=== PATIENT | female | born 1955 | race Caucasian/White ===

== ENCOUNTER 2020-01-21 14:33 | Outpatient (CLI) | payer OTHER, BC, SELFPAY ==
--- NOTE | ~2020-01-21 | MM_ITS ---
EXAMINATION: MM screening ban BI w ottoniel HISTORY: Screening mammogram TECHNIQUE: Craniocaudal and mediolateral oblique 3-D tomosynthesis images were obtained and synthetic 2-D images were generated. Bilateral rotated lateral CC views. CAD analysis was submitted and interp reted. COMPARISON: 11/13/2018, 09/27/2017, 06/22/2016 bilateral digital screening mammogram examinations BREAST PARENCHYMAL COMPOSITION: There are scattered areas of fibroglandular density. FINDINGS: Occasional small low-density circumscribed opacities are stable since 06/22/2016. There is no evidence of suspicious mass, calcification, or architectural distortion to suggest malignancy in e ither breast. There has been no suspicious interval change. IMPRESSION: 1. No mammographic evidence of malignancy. 2. Recommend routine screening mammography in one year. BI-RADS Category 2: Benign finding(s). Reviewed, dictated and finalized at location A.
== END 2020-01-21 14:34 | disposition home or self-care (01) ==
LOC: ANHIMG 14:36
PROVIDERS: PCP Physician Assistant; Visit Provider Physician Assistant
DX: Z12.31 Encounter for screening mammogram for malignant neoplasm of breast (principal)
CPT/HCPCS: 77063; 77067

== ENCOUNTER 2021-05-06 16:22 | Outpatient (CLI) | payer OTHER, BC, SELFPAY ==
--- NOTE | ~2021-05-06 | MM_ITS ---
EXAMINATION: MM screening ban BI w ottoniel HISTORY: Screening TECHNIQUE: Craniocaudal and mediolateral oblique 3-D tomosynthesis images were obtained and synthetic 2-D images were generated. CAD analysis was submitted and interpreted. COMPARISON: Comparison to multiple prior studies sequentially, with oldest reviewed study dated 03/27. BREAST PARENCHYMAL COMPOSITION: There are scattered areas of fibroglandular density. FINDINGS: There is no evidence of suspicious mass, calcification, or architectural distortion to sugg est malignancy in either breast. There has been no suspicious interval change. IMPRESSION: 1. No mammographic evidence of malignancy. 2. Recommend routine screening mammography in one year. BI-RADS Category 1: Negative Reviewed, dictated and finalized at location A.
== END 2021-05-06 16:23 | disposition home or self-care (01) ==
LOC: ANHIMG 16:24
PROVIDERS: PCP Physician Assistant; Visit Provider Physician Assistant
DX: Z12.31 Encounter for screening mammogram for malignant neoplasm of breast (principal)
CPT/HCPCS: 77063; 77067

== ENCOUNTER 2022-08-13 10:41 | Outpatient (CLI) | payer OTHER, BC, SELFPAY ==
--- NOTE | ~2022-08-13 | MM_ITS ---
EXAMINATION: MM screening ban BI w ottoniel HISTORY: Screening TECHNIQUE: Craniocaudal and mediolateral oblique 3-D tomosynthesis images were obtained and synthetic 2-D images were generated. CAD analysis was submitted and interpreted. COMPARISON: Comparison to multiple prior studies sequentially, with oldest reviewed study dated 05/14. BREAST PARENCHYMAL COMPOSITION: There are scattered areas of fibroglandular density. FINDINGS: There is no evidence of suspicious mass, calcification, or architectural distortion to sugg est malignancy in either breast. There has been no suspicious interval change. IMPRESSION: 1. No mammographic evidence of malignancy. 2. Recommend routine screening mammography in one year. BI-RADS Category 1: Negative Reviewed, dictated and finalized at location B. CHIEF'S AIDE
== END 2022-08-13 10:42 | disposition home or self-care (01) ==
LOC: ANHIMG 10:43
PROVIDERS: PCP Physician Assistant; Visit Provider Physician Assistant
DX: Z12.31 Encounter for screening mammogram for malignant neoplasm of breast (principal)
CPT/HCPCS: 77063; 77067

== ENCOUNTER 2023-11-25 08:42 | Outpatient (CLI) | payer OTHER, SELFPAY ==
--- NOTE | ~2023-11-25 | MM_ITS ---
EXAMINATION: MM screening ban BI w ottoniel HISTORY: Screening mammogram TECHNIQUE: Craniocaudal and mediolateral oblique 3-D tomosynthesis images were obtained and synthetic 2-D images were generated. CAD analysis was submitted and interpreted. COMPARISON: 08/13/2022, 05/06/2021 bilateral screening mammogram examinations BREAST PARENCHYMAL COMPOSITION: There are scattered areas of fibroglandular density. FINDINGS: There is no evidence of suspicious mass, calcification, or architectural distortion to sugg est malignancy in either breast. There has been no suspicious interval change. IMPRESSION: 1. No mammographic evidence of malignancy. 2. Recommend routine screening mammography in one year. BI-RADS Category 1: Negative Reviewed, dictated and finalized at location A.
== END 2023-11-25 08:43 | disposition home or self-care (01) ==
PROVIDERS: PCP Physician Assistant; Visit Provider Physician Assistant
DX: Z12.31 Encounter for screening mammogram for malignant neoplasm of breast (principal)
CPT/HCPCS: 77063; 77067

== ENCOUNTER 2024-02-15 08:51 | Outpatient (CLI) | payer OTHER, SELFPAY ==
--- NOTE | ~2024-02-15 | CT_ITS ---
Non-contrast CT scan of the Abdomen and Pelvis Clinical indication: Kidney stones Technique: 2.5 mm axial scans were obtained through the abdomen and pelvis without intravenous or or al contrast. Dose reduction technique was used on this scan by utilizing automated exposure control a nd iterative reconstruction technique. The dose-length product (DLP) was 992.58 mGy-cm. Findings: Images through the lung bases reveal 5 mm right lower lobe pulmonary nodule. There is a 1.1 x 0.6 cm ovoid stone at the mid right ureter (axial image 93), with mild right hydrour eteronephrosis to this level. There are additional small bilateral nonobstructing renal stones, measu ring up to 4 mm in maximum diameter. No left ureteral stone or left hydronephrosis. Hepatic cysts are present, some which are simple, there is one partially exophytic cyst with thin per ipheral curvilinear calcification. Gallbladder distended, otherwise unremarkable. The spleen, pancrea s, and adrenals appear normal. There is no aortic aneurysm. There is no evidence of bowel obstruction. Images through the pelvis were performed. There is no evidence of ascites or lymphadenopathy. Urinary bladder unremarkable. No pelvic mass seen. Impression: 1.1 x 0.6 cm mid right ureteral stone, with moderate right hydroureteronephrosis to this level. Additional small bilateral nonobstructing renal stones, as detailed above. 5 mm right lower lobe pulmonary nodule. According to Fleischner Society criteria, for a low-risk bandar ent, no further follow-up required. For a high-risk patient, consider 12 month follow-up CT. Reviewed, dictated and finalized at [facility]. Impression: 1.1 x 0.6 cm mid right ureteral stone, with moderate right hydroureteronephrosi s to this level. Additional small bilateral nonobstructing renal stones, as detailed above. 5 mm right lower lobe pulmonary nodule. According to Fleischner Society criteri a, for a low-risk patient, no further follow-up required. For a high-risk patie nt, consider 12 month follow-up CT.
== END 2024-02-15 08:52 ==
PROVIDERS: PCP Urology; Visit Provider Urology
DX: N20.2 Calculus of kidney with calculus of ureter (principal); N13.30 Unspecified hydronephrosis; Z87.442 Personal history of urinary calculi; R91.1 Solitary pulmonary nodule
CPT/HCPCS: 74176

== ENCOUNTER 2024-03-12 08:58 | Outpatient (CLI) | payer OTHER, SELFPAY ==
--- NOTE | 2024-03-12 09:00 | ECG_ITS ---
Test Date: 2024-03-12 09:33:08 Measurements Intervals [place] Rate: 47 P: 49 VT: 156 QRS: -8 QRSD: 82 T: 9 QT: 417 QTc: 369 Interpretive Statements SINUS BRADYCARDIA LOW QRS VOLTAGE IN PRECORDIAL LEADS POSSIBLE RIGHT VENTRICULAR CONDUCTION DELAY LEFT VENTRICULAR HYPERTROPHYWITH ST-T CHANGE BORDERLINE ST-T WAVE ABNORMALITY- ANTEROLAT/INF LEADS BASELINE ARTIFACT- I, II, III, AVR, AVL, AVF, V3-V6 ABNORMAL ECG No previous ECG available for comparison Electronically Signed On 03-12-2024 09:38:27 CDT by Chester Brown D.O.
[2024-03-12 10:16] LABS: Anion Gap 9 mmol/L (4-12); Blood Urea Nitrogen 23 mg/dL (7-17); Calcium 8.8 mg/dL (8.4-10.2); Carbon Dioxide 31 mmol/L (22-30); Chloride 101 mmol/L (98-107); Estimated Glomerular Filt Rate > 60; Glucose 110 mg/dL (65-110); Potassium 3.3 mmol/L (3.4-5.0); Sodium 141 mmol/L (137-145)
[2024-03-12 10:25] LABS: Prothrombin Time 13.8 Seconds (11.1-14.7)
[2024-03-12 10:26] LABS: Partial Thromboplastin Time 28.5 Seconds (22.3-36.8)
== END 2024-03-12 08:59 | disposition home or self-care (01) ==
LOC: ANHSURGERY 09:01
PROVIDERS: Anesthesiology; PCP Physician Assistant; Visit Provider Urology
DX: Z01.818 Encounter for other preprocedural examination (principal); N20.1 Calculus of ureter; I10 Essential (primary) hypertension
CPT/HCPCS: 36415; 80048; 85610; 85730; 87086; 87088; 93005

== ENCOUNTER 2024-03-15 00:27 | Day surgery (SDC) | payer OTHER, SELFPAY ==
--- NOTE | 2024-03-06 07:25 | P.HP_ITS ---
History of Present Illness History of Present Illness Consent: Risks, benefits, and alternatives have been discussed and questions answered. Patient agrees to proceed with procedure. Chief complaint: right ureteral stone Narrative: Nidia Alonso is a 68 year old female with a history of urolithiasis who has not been seen for several years. She returns with very slight right flank pain. Imaging, however, demonstrated a large 11 x 6 mm right ureteral stone. After discussion of options she is elected for cystoscopy with right ureteral stent placement and right ESWL. She is aware that she may require additional procedures and that this procedure could lead to, among other things, hematuria perinephric hematoma Review of Systems Review of Systems: All systems reviewed & are unremarkable except as noted in HPI and below PMFSH Social History Social History Alcohol intake: current Meds Home Medications and Allergies Allergies Allergy/AdvReac Type Severity Reaction Status Date / Time No Known Allergies Allergy Unverified 06/24/16 12:45 Exam Const: General: no acute distress Resp: Effort & Inspection: normal respiratory effort GI: Inspection: non-distended GI Palp: No abdominal tenderness and No Guarding due to palpation present (GI) Auscultation: normal bowel sounds Assessment and Plan Assessment and plan (1) Right ureteral stone: Code(s): N20.1 - Calculus of ureter Status: Acute Assessment and Plan: * cystoscopy, right ureteral stent placement, right ESWL
--- NOTE | 2024-03-08 13:19 | PC.NURSE ---
Report to the Outpatient Waiting Room, entrance under the green pavilion located off [facility], at time 6:30 AM on date ____03/15/24___. Planned Procedure Time: _8:30 AM . Time changes happen often and if your time is changed the preop area will call you the afternoon before. - You and your visitor will be asked to self-screen and do not enter if you have any COVID symptoms. - A mask is optional within the hospital at this time. Patients may have clear liquids (water, carbonated beverages, clear teas, apple juice) until 3 hours prior to surgery(5:30 AM) with a maximum of 20 ounces. - No food from midnight until time of surgery - Infants may have breast milk until 4 hours before surgery, infant formula 6 hours prior to surgery. - Children will be allowed to drink immediately following surgery. If applicable, please bring a bottle or sippy cup to assist with drinking. Juice, water, soda, and popsicles are readily available. For infants on formula, please bring formula the day of surgery. Pacifiers are allowed. Take the following medications with a SIP of water the morning of surgery: ____METOPROLOL DO NOT STOP ANY OF YOUR OTHER PRESCRIPTION MEDICATIONS PRIOR TO SURGERY ?EXCEPT THE FOLLOWING Medications to discontinue per physician ALL VITAMINS AND SUPPLEMENTS 3 DAYS PRE OP.LAST DOSE 03/11/24 Please no make-up, nail german, hairspray, perfume, deodorant, or body powder the day of surgery. No jewelry (including any body piercings) or valuables the day of surgery, leave them at home. Please take a shower or bath the night before, or the morning of, surgery with an antibacterial soap. Wear comfortable, loose fitting clothing. Children are encouraged to wear pajamas. - Jewelry must be removed prior to entering the operating room. Rings and piercings that are not removed may be cut off. - The hospital will not accept responsibility for valuables. - Please leave all valuables, including medications, at home the day of surgery. If you are going home after surgery, a licensed tractor trailer truck driver must drive you home. - NO public transportation without another adult if you receive anesthesia. - We recommend that an adult stay with you for 24 hours following discharge. - We also recommend that you do not drive, make important decision, drink alcoholic beverages, or take any drugs that were not prescribed by your health care provider for at least 24 hours after your discharge time. Follow any additional instructions given to you from your surgeon. If you or anyone in your household have experienced Covid symptoms in the past week, please notify your surgeon or the nurse liaison at the phone number below for possible testing. Telephone instructions given to ___PATIENT and asked if any additional questions and then verbalized understanding. Patient advised to call surgeon office or pre surgery nurse liaison [phone] if any additional questions.
[2024-03-08 13:28] VITALS: BMI 41.5
--- NOTE | 2024-03-14 15:04 | P.PNAN_ITS ---
Anes - Initial Pre Proc Eval Procedure: Operation Date: 03/15/24 08:30 Proposed Procedures p Right Extracorporeal Shock Wave Lithotripsy, - Eliazar Neil MD s Cystoscopy, Right Ureteral Stent Placement - Eliazar Neil MD Date/Time: 03/14/24 15:04 Surgeon: Eliazar Neil MD Pre Op Diagnosis: right ureteral stone Patient Data Age: 68 Gender: F Height: 1.55 m Weight: 99.8 kg Allergies Allergy/AdvReac Type Severity Reaction Status Date / Time lisinopril AdvReac Hives Verified 03/15/24 06:55 Home Medications Medication Instructions Recorded Confirmed Type cholecalciferol (vitamin D3) 50 50 mcg PO DAILY 03/08/24 03/15/24 History mcg (2,000 unit) tablet cranberry 1,000 mg capsule 1,000 mg PO EVERY OTHER DAY 03/08/24 03/15/24 History fexofenadine 180 mg tablet 180 mg PO DAILY 03/08/24 03/15/24 History (Shirin Allergy) hydrochlorothiazide 25 mg tablet 25 mg PO DAILY 03/08/24 03/15/24 History hydrocodone 5 mg-acetaminophen 325 1 tablet PO PRN PRN Pain 03/08/24 03/08/24 History mg tablet metoprolol tartrate 50 mg tablet 50 mg PO BID 03/08/24 03/15/24 History potassium 99 mg tablet 99 mg PO DAILY 03/08/24 03/15/24 History Patient hx anesthesia problems: none Family hx anesthesia problems: none Results Review: All pre-operative results and documents have been reviewed as part of the pre- operative evaluation. [facility] Surgical History Surgical History (Updated 03/14/24 @ 15:05 by Colby Navarro DO) History of tubal ligation Social History Social History Smoking status: Never smoker Alcohol intake: current Drinks per week: 5 Substance use: current Substance use type: marijuana Last use: 03/06/24 Living arrangements: with family Spiritual care concerns: No Anes - Eval Final PreProcedure Day of Procedure 03/14/24 15:04 Patient weight: morbidly obese Heart: regular rate and rhythm Lungs: clear to auscultation Airway: Mallampati scale class III Neurological: alert and oriented Last oral intake: >/= 8 hours ASA classification: III Emergent: no Anesthetic plan: proceed Anesthesia type and monitoring: general LMA and standard monitoring Results Review: All pre-operative results and documents have been reviewed as part of the pre- operative evaluation. Informed Consent: The patient's anesthetic plan and its attendant risks and benefits were discussed with the patient/family/POA. Questions were solicited and answers provided to the satisfaction of the patient/family/POA.
--- NOTE | ~2024-03-15 | XR_ITS ---
Supine and upright views of the abdomen Clinical history: Lithotripsy COMPARISON: 07/29/2016 Findings: Bowel gas pattern is nonspecific. No evidence for obstruction or free air. Possible small b ilateral renal stones versus possibly costal cartilage calcifications. Probable pelvic phleboliths. O sseous structures are intact. Impression: Suspected small bilateral renal stones versus possibly costal cartilage dislocations. Probable calcified pelvic phleboliths. Reviewed, dictated and finalized at location M. Impression: Suspected small bilateral renal stones versus possibly costal cartilage disloca tions. Probable calcified pelvic phleboliths.
--- NOTE | 2024-03-15 06:22 | WPDHPUPDATE1 ---
History and Physical Update Update Date/Time: 03/15/24 06:22 History and Physical has been reviewed, including an updated exam of the patient. There are NO changes in the patient's condition. Risks, benefits, and alternatives have been discussed and questions answered. Patient agrees to proceed with procedure.
[2024-03-15] MEDS: LACTATED RINGERS 1,000 ML 30 ML IV CONT ×2 (07:20→09:25)
[2024-03-15 07:36] VITALS: BP 134/73; PULSE 60; RESP 18; TEMP 36.1; O2SAT 98
[2024-03-15] MEDS: ceFAZolin 2 GM/D5W 50 ML 2 GM/50 ML BAG IVPB (08:22)
--- NOTE | 2024-03-15 08:44 | P.OP_ITS ---
Procedure Note - Detailed Date of Procedure 03/15/24 Pre-op Diagnosis Right ureteral stone Post-op Diagnosis Same Procedure Performed Cystoscopy, right ureteral stent placement, right ureteral ESWL Surgeon Eliazar Neil MD Anesthesia General Description of Procedure The patient was brought to the operative suite where she was placed in the frog- legged position on the Dornier lithotripter table. Flexible cystoscopy was undertaken with a 16F flexible cystoscopy. Her urethra and bladder neck were endoscopically normal. The bladder mucosa was normal and there was a single, orthotopic ureteral orifice bilaterally. A 0.035 glidewire was advanced into the right renal pelvis under fluoroscopy. A 4.8F J-J ureteral stent was positioned with the proximal coil in the renal pelvis and the distal coil in the bladder. The patient was then repositioned in the supine position and the focal point of the lithotriptor was placed at a 11x6mm right mid-ureteral calculus. A total of 3000 shocks were delivered at a power setting of 6. There appeared to be good fragmentation of the stone. The patient tolerated the procedure well and was taken to the recovery room in good condition. Drains Yes Packing No Pathology Yes Complications No immediate complications
[2024-03-15 09:25] VITALS: BP 157/95; PULSE 63; RESP 18; TEMP 36.1; O2SAT 100
[2024-03-15 09:30] VITALS: BP 138/74; PULSE 60; RESP 18; O2SAT 95
[2024-03-15 09:45] VITALS: BP 143/86; PULSE 57; RESP 15; O2SAT 95
[2024-03-15 10:00] VITALS: BP 149/72; PULSE 54; RESP 16
[2024-03-15 10:30] VITALS: BP 146/78; PULSE 48; RESP 16
== END 2024-03-15 10:41 | disposition home or self-care (01) ==
PROVIDERS: PCP Physician Assistant; Visit Provider Urology
PROC: (CPT 50590; principal; 2024-03-15 08:30)
PROC: (CPT 52352; 2024-03-15 08:30)
DX: N20.1 Calculus of ureter (principal); F12.90 Cannabis use, unspecified, uncomplicated; E66.01 Morbid (severe) obesity due to excess calories; Z68.42 Body mass index [BMI] 45.0-49.9, adult; Z79.891 Long term (current) use of opiate analgesic; Z98.51 Tubal ligation status
CPT/HCPCS: 50590; 52332; 36415; 74018; 80048; 85610; 85730; 87086; 93005; C1758; C1769; C2617; J0690; J1100; J2250; J2405; J2704; J3010; J7030; J7120

== ENCOUNTER 2024-04-04 15:04 | Outpatient (CLI) | payer OTHER, SELFPAY ==
--- NOTE | ~2024-04-04 | DEXA_ITS ---
Bone Density Report Name: ARISTEO GARCIA Age: 68 Sex: Female Ethnicity: White Date of : 1955 Indication: postmenopausal; screening for osteoporosis; Referring Provider: BRITTNEE, GRISELDA Study: Bone densitometry was performed. Exam Date: April 04, 2024 Accession number: [id number] Bone Density: Region BMD T-score Z-score Classification AP Spine(L1-L4) 0.950 -0.9 1.0 Normal Femoral Neck (Left) 0.643 -1.9 -0.3 Osteopenia Total Hip (Left) 1.003 0.5 1.8 Normal Femoral Neck (Right) 0.782 -0.6 1.0 Normal Total Hip (Right) 1.033 0.7 2.0 Normal Total Hip Mean 1.018 0.6 1.9 Normal World Health Organization criteria for BMD impression classify patients as: Normal (T-score at or above -1.0), Osteopenia (T-score between -1.0 and -2.5), or Osteoporosis (T-score at or below -2.5). 10-year Fracture Risk(1): Major Osteoporotic Fracture 8.7% Hip Fracture 1.1% Reported Risk Factors: [place] (), Neck BMD=0.643, BMI=45.1 (1) FRAX(R) Version 3.08. Fracture probability calculated for an untreated patient. Fracture probability may be lower if the patient has received treatment. Clinical Information Provided by Patient: Has used the following medications: Vitamin D Patient maximum height was 61.5 Menopause Age: 52 No regular weight bearing exercise Drinks caffeinated beverages Onset of menses at age 15 Number of children 2 Impression: The patient has low bone mass, based on the Left Femoral Neck T-score. The patient has an estimated ten-year risk of hip fracture of 1.1% and an estimated ten-year risk of major fracture of 8.7%, based on the WHO FRAX algorithm. Discussion: BONE DENSITY IS LOW AT ONE OR MORE SKELETAL SITES. This patient's lowest T-score is low at one or more skeletal sites. It meets the World Health Organization's (WHO) criteria for ?low bone mass? (T-score between -1.0 and -2.5). The patient's 10-year risk of fracture as calculated by FRAX is less than the threshold where pharmacological therapy is recommended by the National Osteoporosis Foundation (NOF). However, all treatment decisions require clinical judgment and consideration of individual patient factors, including patient preferences, comorbidities, previous drug use, risk factors not captured in the FRAX model (e.g., frailty, falls, vitamin D deficiency, increased bone turnover, interval significant decline in bone density) and possible under or overestimation of fracture risk by FRAX. The patient should follow a healthful lifestyle (good nutrition with adequate calcium and vitamin D, and appropriate weight-bearing exercise). Follow-Up: Consider repeating this study in 2 to 3 years to reassess this patient's status, or sooner if there is some new clinical indication. Reported by: JANELL on 04/04/2024 3:45:00 PM. Reviewed, judson and f
== END 2024-04-04 15:05 | disposition home or self-care (01) ==
LOC: ANHIMG 15:06
PROVIDERS: PCP Physician Assistant; Visit Provider Physician Assistant
DX: Z78.0 Asymptomatic menopausal state (principal); M85.852 Other specified disorders of bone density and structure, left thigh
CPT/HCPCS: 77080

== ENCOUNTER 2024-04-04 15:49 | Outpatient (CLI) | payer OTHER, SELFPAY ==
--- NOTE | ~2024-04-04 | XR_ITS ---
EXAMINATION: XR abdomen/kub 1V DATE: 04/04/2024 16:19 INDICATION: Calculus of ureter TECHNIQUE: A supine view of the abdomen on 2 radiographs was obtained. COMPARISON: 03/15/2024 FINDINGS: Right internal ureteral stent in expected position with loops formed at the right renal pelvis and th e second in the bladder. There are couple unchanged small stones at the lower pole of the right kidne y measuring up to 3 mm and unchanged 5 mm stone at the lower pole the left kidney. No stones seen lauren ng the course of ureters. There are few small phleboliths in the pelvis. IMPRESSION: 1. Small stones at the lower poles of both kidneys. 2. Right internal ureteral stent in expected position with no evident ureteral stones. Reviewed, dictated and finalized at location A.
== END 2024-04-04 15:50 | disposition home or self-care (01) ==
LOC: ANHIMG 15:51
PROVIDERS: PCP Physician Assistant; Visit Provider Urology
DX: N20.1 Calculus of ureter (principal)
CPT/HCPCS: 74018

== ENCOUNTER 2024-06-17 00:49 | Day surgery (SDC) | payer OTHER, SELFPAY ==
[2024-05-31 12:40] VITALS: BMI 43.7
[2024-06-17 07:54] VITALS: BP 133/73; PULSE 50; RESP 18; TEMP 36.1; O2SAT 100
[2024-06-17] MEDS: LACTATED RINGERS 1,000 ML 150 ML IV CONT (08:04)
--- NOTE | 2024-06-17 08:22 | P.PNAN_ITS ---
Anes - Initial Pre Proc Eval Procedure: Operation Date: 06/17/24 09:00 Proposed Procedures p Screening Colonoscopy - Genaro Garcia MD Date/Time: 06/17/24 08:22 Surgeon: Genaro Garcia MD Pre Op Diagnosis: Neoplasm screening Patient Data Age: 68 Gender: F Height: 1.55 m Weight: 108.1 kg Last Vital Signs Temp 36.1 C L 06/17/24 07:54 Pulse 50 L 06/17/24 07:54 Resp 18 06/17/24 07:54 BP 133/73 06/17/24 07:54 Pulse Ox 100 06/17/24 07:54 O2 Del Method Room Air 06/17/24 07:54 Allergies Allergy/AdvReac Type Severity Reaction Status Date / Time lisinopril AdvReac Hives Verified 06/17/24 07:53 Home Medications Medication Instructions Recorded Confirmed Type cholecalciferol (vitamin D3) 50 50 mcg PO DAILY 03/08/24 06/17/24 History mcg (2,000 unit) tablet cranberry 1,000 mg capsule 1,000 mg PO EVERY OTHER DAY 03/08/24 06/17/24 History fexofenadine 180 mg tablet 180 mg PO DAILY 03/08/24 06/17/24 History (Shirin Allergy) hydrochlorothiazide 25 mg tablet 25 mg PO DAILY 03/08/24 06/17/24 History metoprolol tartrate 50 mg tablet 50 mg PO BID 03/08/24 06/17/24 History potassium 99 mg tablet 99 mg PO DAILY 03/08/24 06/17/24 History Patient hx anesthesia problems: none Family hx anesthesia problems: none Results Review: All pre-operative results and documents have been reviewed as part of the pre- operative evaluation. [facility] Past Medical History Medical History (Updated 06/17/24 @ 08:22 by Thien Verde MD) HTN (hypertension) Morbid obesity Surgical History Surgical History (Updated 06/17/24 @ 08:22 by Thien Verde MD) History of tubal ligation Hx of cystoscopy Social History Social History Smoking status: Never smoker Alcohol intake: current Drinks per week: 5 Substance use: current Substance use type: marijuana Other substance usage details: SMOKES MARIJUANA AND GUMMIES Last use: 03/06/24 Living arrangements: with family Spiritual care concerns: No Anes - Eval Final PreProcedure Day of Procedure 06/17/24 08:22 Patient weight: morbidly obese Heart: regular rate and rhythm Lungs: clear to auscultation Airway: Mallampati scale class II Neurological: alert and oriented Last oral intake: >/= 8 hours ASA classification: III Emergent: no Anesthetic plan: proceed Anesthesia type and monitoring: general GIVS and standard monitoring Results Review: All pre-operative results and documents have been reviewed as part of the pre- operative evaluation. Informed Consent: The patient's anesthetic plan and its attendant risks and benefits were discussed with the patient/family/POA. Questions were solicited and answers provided to the satisfaction of the patient/family/POA.
--- NOTE | 2024-06-17 08:45 | PM.HPGS ---
History of Present Illness History of Present Illness Consent: Risks, benefits, and alternatives have been discussed and questions answered. Patient agrees to proceed with procedure. Chief complaint: Neoplasm screening Narrative: Nidia Alonso is a 68 year old female here for screening colonoscopy, last one over 10 years ago Review of Systems Review of Systems: All systems reviewed & are unremarkable except as noted in HPI and below PMFSH Past Medical History Medical History (Updated 06/17/24 @ 08:46 by Genaro Garcia MD) Colon cancer screening HTN (hypertension) Morbid obesity Surgical History Surgical History (Updated 06/17/24 @ 08:22 by Thien Verde MD) History of tubal ligation Hx of cystoscopy Social History Social History Smoking status: Never smoker Alcohol intake: current Drinks per week: 5 Substance use: current Substance use type: marijuana Other substance usage details: SMOKES MARIJUANA AND GUMMIES Last use: 03/06/24 Living arrangements: with family Spiritual care concerns: No Meds Home Medications and Allergies Home Medications Medication Instructions Recorded Confirmed Type cholecalciferol (vitamin D3) 50 50 mcg PO DAILY 03/08/24 06/17/24 History mcg (2,000 unit) tablet cranberry 1,000 mg capsule 1,000 mg PO EVERY OTHER DAY 03/08/24 06/17/24 History fexofenadine 180 mg tablet 180 mg PO DAILY 03/08/24 06/17/24 History (Shirin Allergy) hydrochlorothiazide 25 mg tablet 25 mg PO DAILY 03/08/24 06/17/24 History metoprolol tartrate 50 mg tablet 50 mg PO BID 03/08/24 06/17/24 History potassium 99 mg tablet 99 mg PO DAILY 03/08/24 06/17/24 History Allergies Allergy/AdvReac Type Severity Reaction Status Date / Time lisinopril AdvReac Hives Verified 06/17/24 07:53 Vital Signs Vital Signs - 24 hr 06/17/24 07:54 Temperature 97 F L Pulse Rate 50 L Respiratory Rate 18 Blood Pressure 133/73 Pulse Oximetry 100 Oxygen Delivery Room Air Exam Const: General: comfortable and no acute distress HENMT: Face/Nose/Sinus: Normal nares present Eyes: General: appearance normal, both eyes and all related structures Neck: Neck: no JVD Resp: Auscultation: clear to auscultation bilaterally Cardio: Rate: regular rate Rhythm: regular rhythm GI: Inspection: non-distended GI Palp: Yes Soft to palpation Skin: General skin exam: normal color Neuro: General: gait normal Speech: normal speech Extrem: General: normal to inspection Psych: Mental Status: mental status grossly normal Assessment and Plan Assessment and plan (1) Colon cancer screening: Code(s): Z12.11 - Encounter for screening for malignant neoplasm of colon Status: Acute Assessment and Plan: colonoscopy
[2024-06-17 09:06] VITALS: BP 119/66; PULSE 67; RESP 16; O2SAT 99
[2024-06-17 09:16] VITALS: BP 128/75; PULSE 62; RESP 17; O2SAT 100
[2024-06-17 09:26] VITALS: BP 125/82; PULSE 53; RESP 23; O2SAT 100
== END 2024-06-17 09:36 | disposition home or self-care (01) ==
PROVIDERS: PCP Physician Assistant; Visit Provider Internal Medicine Gastroenterology
PROC: 0DJD8ZZ Inspection of Lower Intestinal Tract, Via Natural or Artificial Opening Endoscopic (ICD-10-PCS; CPT 45378; principal; 2024-06-17 09:00)
DX: Z12.11 Encounter for screening for malignant neoplasm of colon (principal); D12.3 Benign neoplasm of transverse colon; D12.4 Benign neoplasm of descending colon; K64.4 Residual hemorrhoidal skin tags; K57.30 Diverticulosis of large intestine without perforation or abscess without bleeding; I10 Essential (primary) hypertension; F12.90 Cannabis use, unspecified, uncomplicated; E66.01 Morbid (severe) obesity due to excess calories; Z68.42 Body mass index [BMI] 45.0-49.9, adult; Z98.890 Other specified postprocedural states; Z98.51 Tubal ligation status
CPT/HCPCS: 45385; 88305; J1596; J2003; J2704; J7120

== ENCOUNTER 2025-03-14 08:45 | Outpatient (CLI) | payer MEDICARE, SELFPAY ==
--- NOTE | ~2025-03-14 | MM_ITS ---
EXAMINATION: MM screening [facility] BI w ottoniel HISTORY: Screening mammogram TECHNIQUE: Craniocaudal and mediolateral oblique 3-D tomosynthesis images were obtained and synthetic 2-D images were generated. CAD analysis was submitted and interpreted. COMPARISON: 11/25/2023, 08/13/2022, 05/06/2021 BREAST PARENCHYMAL COMPOSITION:Not Dense. There are scattered areas of fibroglandular density. FINDINGS: No suspicious mass, calcification, or architectural distortion are identified in either trey ast to suggest malignancy. There has been no suspicious interval change. IMPRESSION: No mammographic evidence of malignancy. Recommend routine screening mammography in one year. BI-RADS Category 1: Negative Reviewed, dictated and finalized at location .
--- OUTSIDE RECORDS SUMMARY | 2025-03-14 08:51 | XMS_ITS | Encounter Summary ---
Author Organization [facility] Healthcare Address [address] [place] [id number] Care Team Providers Care Volunteer Patient Representative Name Role Phone Brooke Antonio Primary Care Provider [phone]- [phone] Encounter Details Date Type Department Care Team (Late st Contact Info) Description 03/15/2024 Orders Only [facility] [place] [address] [place] [id number] Scanning, Provider Social History Tobacco Use Types Packs/Day Years Used Date Smoking Tobacco: Never Smokeless Tobacco: Never Alcohol Use Standard Drinks/Week Comments Yes 0 (1 standard drink = 0.6 oz pur e alcohol) AUDIT-C Answer Date Recorded Q1: How often do you have a drink containing alc ohol? 2-3 times a week 10/23/2023 Q2: How many drinks containi ng alcohol do you have on a typical day when you are drinking? 3 or 4 10/23/2023 Q3: How often do you have si x or more drinks on one occasion? 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- [employer] Not on file Not on file Not on tanisha e documented as of this encounter Plan of Treatment Not on file documented as of this encounter Procedures Procedure Name Priority Date/Time Associated Diagnosis Comments SCAN - RADIOLOGY/IMAGING 03/15/2024 documented in this encounter Results * SCAN - RADIOLOGY/IMAGING (03/15/2024) Anatomical Region Laterality Modality Other us Provider Scanning Final Result documented in this encounter Visit Diagnoses Not on filedocumented in this encounter Care Teams Volunteer Patient Representative Relationship Specialty Start Date End Date Brooke Antonio PA [address] [facility] [address] [place] [address] PCP - General Internal Medicine 01/31/19 documented as of this encounter
--- OUTSIDE RECORDS SUMMARY | 2025-03-14 08:51 | XMS_ITS | Encounter Summary ---
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 us Historical Provider Final Res ult documented in this encounter Visit Diagnoses Not on filedocumented in this encounter Care Teams Ict Trainer Relationship Specialty Start Date End Date Brooke Antonio PA [address] [place], [place] [id number] PCP - General Internal Medicine 01/31/19 documented as of this encounter
--- OUTSIDE RECORDS SUMMARY | 2025-03-14 08:51 | XMS_ITS | Encounter Summary ---
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 Gender Identity Female 01/05/2021 9:27 AM CDT Sexual Orientation Straight 01/05/2021 9: 26 AM CDT 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 Not on file Not on tanisha e documented as of this encounter Plan of Treatment Not on file documented as of this encounter Procedures Procedure Name Priority Date/Time Associated Diagnosis Comments SCAN - LABS 03/12/2024 documented in this encounter Results * SCAN - LABS (03/12/2024) us Provider Scanning Edited Result - Final documented in this encounter Visit Diagnoses Not on filedocumented in this encounter Care Teams Soldering Machine Tender Relationship Specialty Start Date End Date Brooke Antonio PA [address] [facility] [address] [place] [address] PCP - General Internal Medicine 01/31/19 documented as of this encounter
--- OUTSIDE RECORDS SUMMARY | 2025-03-14 08:51 | XMS_ITS | Clinical Summary ---
[place] [facility] [place] [address] [facility] Address [address] [place] [address] Care Team Providers Care Hob Grinder Name Role Phone Brooke Antonio Primary Care Provider [phone] Allergies Active Allergy Reactions Criticality Noted Date Comments Lisinopril Anaphylaxis High 02/11/2019 anaphylaxis Medications fexofenadine (CINDY) 180 mg tablet 1 tablet (180 mg total) daily Active cholecalciferol (VITAMIN D-3) 5,000 unit capsule 1 capsule (5,000 Units total) Active potassium 99 mg tablet 1 tablet (99 mg total) daily Active fluticasone propionate (FLONASE) 50 mcg/actuation nasal spray daily 8 Active metoprolol tartrate (LOPRESSOR) 50 mg immediate release tabletIndications :Essential hypertension Take 1 tablet (50 mg total) by mouth 2 (two) times a day 180 tablet 3 4 Active hydroCHLOROthiazi de (HYDRODIURIL) 25 mg tabletIndications :Essential hypertension Take 1 tablet (25 mg total) by mouth daily 90 tablet 3 4 Active Active Problems Problem Noted Date Diagnosed Date Need for vaccination for Strep pneumoniae 2024 Assessment & Plan (10/20/2024 2:57 PM PROPOSAL DEVELOPMENT MANAGER): Prevnar 20 updated in the office today Breast cancer screening by mammogram 10/20/2024 Assessment & Plan (10/20/2024 2:57 PM PROPOSAL DEVELOPMENT MANAGER): Mammogram order provided Annual physical exam 10/20/2024 Assessment & Plan (10/20/2024 2:58 PM PROPOSAL DEVELOPMENT MANAGER): Encouraged healthy lifestyle, good nutrition and exercise. Encouraged Calcium and Vitamin D and weight bearing exercise for bone health. Reviewed immunizations Reviewed age appropirate screenings. Morbid obesity 04/09/2024 Assessment & Plan (10/10/2024 10:08 AM PROPOSAL DEVELOPMENT MANAGER): Discussed the patient's BMI. The BMI is above average. BMI management plan is completed. BMI Follow-up includes: nutrition counseling, exercise counseling and education provided. Assessment & Plan (04/09/2024 10:30 AM CDT): Discussed the patient's BMI. The BMI is above average. BMI management plan is completed. BMI Follow-up includes: nutrition counseling, exercise counseling and education provided. Kidney stone 04/09/2024 Overview (04/09/2024): History of kidney stones -- managed by Dr. Neil BMI 40.0-44.9, adult ([facility]) 02/11/2019 Assessment & Plan (10/10/2024 10:08 AM PROPOSAL DEVELOPMENT MANAGER): Discussed the patient's BMI. The BMI is above average. BMI management plan is completed. BMI Follow-up includes: nutrition counseling, exercise counseling and education provided. Assessment & Plan (04/09/2024 10:30 AM CDT): Discussed the patient's BMI. The BMI is above average. BMI management plan is completed. BMI Follow-up includes: nutrition counseling, exercise counseling and education provided. Assessment & Plan (07/06/2020 10:45 PM PROPOSAL DEVELOPMENT MANAGER): Obesity is unchanged. Discussed the patient's BMI. The BMI is above average. BMI management plan is completed. BMI Follow-up includes: nutrition counseling, exercise counseling and education provided. Assessment & Plan (02/11/2019 10:54 AM CDT): Obesity is unchanged. Discussed the patient's BMI. The BMI is above average; BMI management plan is completed. General weight loss/lifestyle modification strategies discussed (elicit support from others; identify saboteurs; non-food rewards, etc). Encouraged increased exercise. Other fatigue 02/11/2019 Assessment & Plan (10/20/2024 2:57 PM PROPOSAL DEVELOPMENT MANAGER): Probably multifactorial. Check labs and followup to re-evaluate Assessment & Plan (07/06/2020 10:45 PM PROPOSAL DEVELOPMENT MANAGER): Probably multifactorial. Check labs and followup to re-evaluate Assessment & Plan (02/11/2019 10:36 PM CDT): This is a significant, separately identifiable problem that was evaluated and managed on the same day as the wellness exam Probably multifactorial. Check labs and followup to re-evaluate Essential hypertension 02/09/2019 Assessment & Plan (10/20/2024 2:56 PM PROPOSAL DEVELOPMENT MANAGER): Bp is stable/in acceptable range for any co-morbidities. Encouraged to limit sodium intake and exercise for weight control. Continue metoprolol and hydrochlorothiazide Assessment & Plan (04/09/2024 10:29 AM CDT): Bp is stable/in acceptable range for any co-morbidities. Encouraged to limit sodium intake and exercise for weight control. Continue metoprolol and hydrochlorothiazide Assessment & Plan (11/02/2023 10:55 PM PROPOSAL DEVELOPMENT MANAGER): Bp is stable/in acceptable range for any co-morbidities. Encouraged to limit sodium intake and exercise for weight control. Continue metoprolol and hydrochlorothiazide Assessment & Plan (08/29/2022 9:53 PM PROPOSAL DEVELOPMENT MANAGER): Bp is stable/in acceptable range for any co-morbidities. Encouraged to limit sodium intake and exercise for weight control. Continue metoprolol hydrochlorothiazide Assessment & Plan (08/29/2021 10:23 PM PROPOSAL DEVELOPMENT MANAGER): Bp is stable/in acceptable range for any co-morbidities. Encouraged to limit sodium intake and exercise for weight control. Continue metoprolol Assessment & Plan (07/06/2020 10:44 PM PROPOSAL DEVELOPMENT MANAGER): Bp is stable/in acceptable range for any co-morbidities. Encouraged to limit sodium intake and exercise for weight control. Continue metroprolol and HCTZ Assessment & Plan (02/11/2019 10:36 PM CDT): This is a significant, separately identifiable problem that was evaluated and managed on the same day as the wellness exam Bp is a little elevated. Encouraged to limit sodium intake and exercise for weight control. Monitor home readings and call if is over 130/85 as may need to add additional control HLD (hyperlipidemia) 02/09/2019 Assessment & Plan (10/20/2024 2:57 PM PROPOSAL DEVELOPMENT MANAGER): Encouraged patient to follow low fat/low chol diet like the Mediterranean diet. Increase good fats in the diet. Increase exercise. Monitor labs as needed. Assessment & Plan (04/09/2024 10:29 AM CDT): Encouraged patient to follow low fat/low chol diet like the Mediterranean diet. Increase good fats in the diet. Increase exercise. Monitor labs as needed. Patient wants to continue to work with diet control medication Assessment & Plan (11/02/2023 10:55 PM PROPOSAL DEVELOPMENT MANAGER): Encouraged patient to follow low fat/low chol diet like the Mediterranean diet. Increase good fats in the diet. Increase exercise. Monitor labs as needed. Patient due for follow-up labs Assessment & Plan (08/29/2022 9:55 PM PROPOSAL DEVELOPMENT MANAGER): Encouraged patient to follow low fat/low chol diet like the Mediterranean diet. Increase good fats in the diet. Increase exercise. Monitor labs as needed. Due for labs Assessment & Plan (08/29/2021 10:23 PM PROPOSAL DEVELOPMENT MANAGER): Encouraged patient to follow fat/low chol diet like the Mediterranean diet. Increase good fats in the diet. Increase exercise. Monitor labs as needed. Assessment & Plan (07/06/2020 10:45 PM PROPOSAL DEVELOPMENT MANAGER): Encouraged patient to follow fat/low chol diet like the Mediterranean diet. Increase good fats in the diet. Increase exercise. Monitor labs as needed. Diet controlled right now -- check labs Assessment & Plan (02/11/2019 10:31 PM CDT): Encouraged patient to continue low fat/low chol diet. Continue exercise. Increase good fats in the diet. Monitor labs as needed. Check labs Pre-diabetes 02/09/2019 Assessment & Plan (10/20/2024 2:57 PM PROPOSAL DEVELOPMENT MANAGER): Pre-diabetes/hyperglycemia is a precursor to Dm. Stressed importance of working on diet (decrease your simple sugars and one carbohydrate with each meal) and increase you exercise to achieve weight loss and this will help prevent you from progressing to diabetes. Assessment & Plan (04/09/2024 10:29 AM CDT): Pre-diabetes/hyperglycemia is a precursor to Dm. Stressed importance of working on diet (decrease your simple sugars and one carbohydrate with each meal) and increase you exercise to achieve weight loss and this will help prevent you from progressing to diabetes. Assessment & Plan (11/02/2023 10:55 PM PROPOSAL DEVELOPMENT MANAGER): Pre-diabetes/hyperglycemia is a precursor to Dm. Stressed importance of working on diet (decrease your simple sugars and one carbohydrate with each meal) and increase you exercise to achieve weight loss and this will help prevent you from progressing to diabetes. Assessment & Plan (08/29/2022 9:55 PM PROPOSAL DEVELOPMENT MANAGER): Pre-diabetes/hyperglycemia is a precursor to Dm. Stressed importance of working on diet (decrease your simple sugars and one carbohydrate with each meal) and increase you exercise to achieve weight loss and this will help prevent you from progressing to diabetes. Assessment & Plan (08/29/2021 10:23 PM PROPOSAL DEVELOPMENT MANAGER): Pre-diabetes/hyperglycemia is a precursor to Dm. Stressed importance of working on diet (decrease your simple sugars and one carbohydrate with each meal) and increase you exercise to achieve weight loss and this will help prevent you from progressing to diabetes. Assessment & Plan (07/06/2020 10:45 PM PROPOSAL DEVELOPMENT MANAGER): Check labs. Pre-diabetes/hyperlipidemia is a precursor to Dm. Stressed importance of working on diet (decrease your simple sugars and one carbohydrate with each meal) and increase you exercise to achieve weight loss and this will help prevent you from progressing to diabetes. Assessment & Plan (02/11/2019 10:36 PM CDT): This is a significant, separately identifiable problem that was evaluated and managed on the same day as the wellness exam Pre-diabetes is a precursor to Dm. Stressed importance of working on diet (decrease your simple sugars and one carbohydrate with each meal) and increase you exercise to achieve weight loss and this will help prevent you from progressing to diabetes. GERD (gastroesophageal reflux disease) 9 Assessment & Plan (07/06/2020 10:44 PM PROPOSAL DEVELOPMENT MANAGER): Managed without medication at this point. Vitamin D deficiency 02/09/2019 Assessment & Plan (10/20/2024 2:56 PM PROPOSAL DEVELOPMENT MANAGER): Supplement Assessment & Plan (04/09/2024 10:29 AM CDT): Supplement Assessment & Plan (07/06/2020 10:45 PM PROPOSAL DEVELOPMENT MANAGER): supplement Assessment & Plan (02/11/2019 10:30 PM CDT): Continue supplement otc Menopause 02/09/2019 Assessment & Plan (11/02/2023 10:55 PM PROPOSAL DEVELOPMENT MANAGER): Check DEXA Resolved Problems Problem Noted Date Diagnosed Date Resolved Date Breast cancer screening by mammogram 11/02/2023 04/09/2024 Assessment & Plan (11/02/2023 10:56 PM PROPOSAL DEVELOPMENT MANAGER): Mammogram order provided Colon cancer screening 08/29/202210/20 Assessment & Plan (04/09/2024 10:00 AM CDT): Scheduled with Dr. Jaspal Cantor in 06/2024 Assessment & Plan (11/02/2023 10:56 PM PROPOSAL DEVELOPMENT MANAGER): Due for colon cancer screening. Referral to Dr. Jaspal ovalles as will be placed Assessment & Plan (08/29/2022 10:09 PM PROPOSAL DEVELOPMENT MANAGER): Discussed colon cancer screening. She is due for colonoscopy in prefers to see Dr. Acevedo. Will place referral Acute recurrent frontal sinusitis 06/24/2022 08/29/2022 Upper respiratory infection 09/22/2021 08/29/2022 Assessment & Plan (09/22/2021 11:15 AM PROPOSAL DEVELOPMENT MANAGER): Patient will be tested for COVID through her employer tomorrow with results being available on Monday. Reviewed with patient that is difficult to distinguish between COVID, sinusitis versus other viral infection at this time. She is convinced it is a sinus infection in would like an antibiotic. Encouraged her to aggressively treat symptoms and allow the symptomatic treatment to work. If she tests negative Monday or Monday and symptoms are still persistent will go ahead and send an antibiotic that is sitting at the pharmacy for her but strongly encouraged her to only use if symptoms progress with a negative COVID. She voices understanding. Fatigue 08/29/2021 04/09/2024 Assessment & Plan (11/02/2023 10:55 PM PROPOSAL DEVELOPMENT MANAGER): Probably multifactorial. Check labs and followup to re-evaluate Assessment & Plan (08/29/2022 10:09 PM PROPOSAL DEVELOPMENT MANAGER): Probably multifactorial. Check labs and followup to re-evaluate Assessment & Plan (08/29/2021 10:24 PM PROPOSAL DEVELOPMENT MANAGER): Probably multifactorial. Check labs and followup to re-evaluate BMI 40.0-44.9, adult 08/09/2021 022 Assessment & Plan (08/09/2021 5:17 PM PROPOSAL DEVELOPMENT MANAGER): Obesity is unchanged. Discussed the patient's BMI. The BMI is above average. BMI management plan is completed. BMI Follow-up includes: nutrition counseling, exercise counseling and education provided. Morbid obesity with BMI of 40.0-44.9, adult 08/09/2021 04/09/2024 Assessment & Plan (11/02/2023 10:55 PM PROPOSAL DEVELOPMENT MANAGER): Discussed the patient's BMI. The BMI is above average. BMI management plan is completed. BMI Follow-up includes: nutrition counseling, exercise counseling and education provided. Assessment & Plan (08/29/2022 10:08 PM PROPOSAL DEVELOPMENT MANAGER): Discussed the patient's BMI. The BMI is above average. BMI management plan is completed. BMI Follow-up includes: nutrition counseling, exercise counseling and education provided. Assessment & Plan (08/09/2021 5:17 PM PROPOSAL DEVELOPMENT MANAGER): Obesity is unchanged. Discussed the patient's BMI. The BMI is above average. BMI management plan is completed. BMI Follow-up includes: nutrition counseling, exercise counseling and education provided. Inflamed sebaceous cyst 05/30/2021 08/0 02/2024 Assessment & Plan (05/30/2021 1:37 PM CDT): Sebum and creamy drainage was expressed. Cyst collapsed down. Start Keflex. Continue warm compress. Call if sxs worsen or refills. BMI 40.0-44.9, adult 05/19/2021 Assessment & Plan (05/19/2021 2:00 PM CDT): Obesity is unchanged. Discussed the patient's BMI. The BMI is above average. BMI management plan is completed. BMI Follow-up includes: nutrition counseling, exercise counseling and education provided. Morbid obesity with BMI of 40.0-44.9, adult 05/19/2021 08/09/2021 Assessment & Plan (05/19/2021 2:00 PM CDT): Obesity is unchanged. Discussed the patient's BMI. The BMI is above average. BMI management plan is completed. BMI Follow-up includes: nutrition counseling, exercise counseling and education provided. Acute non-recurrent pansinusitis 01/05/2021 09/22/2021 Assessment & Plan (01/05/2021 10:27 AM CDT): She declines covid 19 test at this time. Advised increased fluids, rest F/u in 72h if not improving, sooner if worsening Morbid obesity ([facility]) 02/11/201902/2024 Assessment & Plan (07/06/2020 10:45 PM PROPOSAL DEVELOPMENT MANAGER): Obesity is unchanged. Discussed the patient's BMI. The BMI is above average. BMI management plan is completed. BMI Follow-up includes: nutrition counseling, exercise counseling and education provided. Assessment & Plan (02/11/2019 10:55 AM CDT): Obesity is unchanged. Discussed the patient's BMI. The BMI is above average; BMI management plan is completed. General weight loss/lifestyle modification strategies discussed (elicit support from others; identify saboteurs; non-food rewards, etc). Encouraged increased exercise. Annual physical exam 02/11/2019 024 Assessment & Plan (11/02/2023 10:55 PM PROPOSAL DEVELOPMENT MANAGER): Encouraged healthy lifestyle, good nutrition and exercise. Encouraged Calcium and Vitamin D and weight bearing exercise for bone health. Reviewed immunizations Reviewed age appropirate screenings. Assessment & Plan (08/29/2022 9:56 PM PROPOSAL DEVELOPMENT MANAGER): Encouraged healthy lifestyle, good nutrition and exercise. Encouraged Calcium and Vitamin D and weight bearing exercise for bone health. Reviewed immunizations Reviewed age appropirate screenings. Assessment & Plan (08/29/2021 10:23 PM PROPOSAL DEVELOPMENT MANAGER): Encouraged healthy lifestyle, good nutrition and exercise. Encouraged Calcium and Vitamin D and weight bearing exercise for bone health. Reviewed immunizations Reviewed age appropirate screenings. Assessment & Plan (07/06/2020 10:45 PM PROPOSAL DEVELOPMENT MANAGER): Encouraged healthy lifestyle, good nutrition and exercise. Encouraged Calcium and Vitamin D and weight bearing exercise for bone health. Reviewed immunizations Reviewed age appropirate screenings. Assessment & Plan (02/11/2019 10:31 PM CDT): Encouraged healthy lifestyle, good nutrition and exercise. Encouraged Calcium and Vitamin D and weight bearing exercise for bone health. Reviewed immunizations Reviewed age appropirate screenings. Immunity status testing 02/11/201910/2019 Assessment & Plan (02/11/2019 10:37 PM CDT): This is a significant, separately identifiable problem that was evaluated and managed on the same day as the wellness exam Check Rubeola immunity to determine if needs booster. Immunizations Immunization Administration Dates Next Due Influenza, Unspecified 09/04/2024(Deferr ed: Patient Refused),09/04/2023(Deferred: Patient Refused),08/15/2022(Deferred: Patient Refused),08/09/2021(Deferred: Patient Refused),09/04/2020(Deferred: Patient Refused) Pneumococcal Conjugate Pcv20 10/10/2024 Tdap 02/07/2018 Surgical History Surgery Date Site/Laterality Comments LITHOTRIPSY 09/04/2015 - 09/03/2016 TUBAL LIGATION Family History Medical History Relation Name Comments Hyperlipidemia Father Hypertension Father Hypertension Mother Relation Name Status Comments Father Alive Mother Alive Social History Tobacco Use Types Packs/Day Years Used Date Smoking Tobacco: Never Smokeless Tobacco: Never Tobacco Cessation:Counseling Given: Not Answered Alcohol Use Standard Drinks/Week Comments Yes 0 (1 standard drink = 0.6 oz pur e alcohol) AUDIT-C Answer Date Recorded Q1: How often do you have a drink containing alc ohol? 2-3 times a week 10/10/2024 Q2: How many drinks containi ng alcohol do you have on a typical day when you are drinking? 3 or 4 10/10/2024 Q3: How often do you have si x or more drinks on one occasion? Less than monthly 10/10/2024 PHQ-2 Answer Date Recorded PHQ-2 Total Score (If total score is 3 or more points, staff should administer the PHQ-9) 0 10/10/2024 Comments Unknown Sex and Gender Information Value Date Recorded Sex Assigned at Not on file Legal Sex Female 8:32 PM PROPOSAL DEVELOPMENT MANAGER Gender Identity Female 01/05/2021 9:27 AM CDT Sexual Orientation Straight 01/05/2021 9: 26 AM CDT Occupation Industry Job Start Date Job End Date [employer] Not on file Not on file Not on tanisha e Obstetrics History Last Filed Vital Signs Vital Sign Reading Time Taken Comments Blood Pressure 128/76 10/10/2024 10:06 AM PROPOSAL DEVELOPMENT MANAGER Pulse 56 10/10/2024 10:06 AM PROPOSAL DEVELOPMENT MANAGER Temperature 36.3 C (97.4 F) 10/10/2024 10:06 AM PROPOSAL DEVELOPMENT MANAGER Respiratory Rate 16 08/15/2022 4:56 PM PROPOSAL DEVELOPMENT MANAGER Oxygen Saturation 95% 10/10/2024 10:06 AM PROPOSAL DEVELOPMENT MANAGER Inhaled Oxygen Concentration - - Weight 109.3 kg (241 lb) 10/10/2024 10:06 AM PROPOSAL DEVELOPMENT MANAGER Height 157.5 cm (5' 2) 10/10/2024 10:06 AM PROPOSAL DEVELOPMENT MANAGER Body Mass Index 44.08 10/10/2024 10:06 AM PROPOSAL DEVELOPMENT MANAGER Plan of Treatment Health Maintenance Due Date Last Done Comments Hepatitis C Screening 1955 Hepatitis B Screening 12/01/1975 Zoster Vaccine (1 of 2) 12/01/2007 Breast Cancer Screening-Mammogram 11/24/2024 11/25/2023, 08/13/2022, 05/06/2021, Additional history exists Influenza Vaccine (Season Ended) 2025 Depression Screening 10/10/2025 10/10/2024, 04/09/2024, 10/23/2023, Additional history exists Fall Risk Assessment 10/10/2025 10/10/2024, 10/23/2023, 02/11/2019 Well Visit 65+ 10/10/2025 10/10/2024, 10/05, 08/15/2022, Additional history exists Osteoporosis Screening-Bone Density Scan 04/04/2026 04/04/2024 DTaP/Tdap/Td Vaccine (2 - Td or Tdap) 02/08/2028 02/07/2018 Colon Cancer Screening-Colonoscopy 06/17/2034 06/17/2024, 08/22/2012 Cervical Cancer Screening Discontinued 02/07/2018, 02/2018 Colon Cancer Screening-CT Colonography Discontinued 06/17/2024, 08/22/2012 Colon Cancer Screening-DNA Stool Discontinued 06/17/20 24, 08/22/2012 Colon Cancer Screening-FIT Discontinued 06/17/2024, Colon Cancer Screening-Sigmoidoscopy Discontinued 06/17/2024, 08/22/2012 Pneumococcal vaccine 65+ Completed 10/10/2024 Procedures Procedure Name Priority Date/Time Associated Diagnosis Comments COLONOSCOPY Routine 06/17/2024 11:59 AM CDT DEXA AXIAL SKELETON BONE DENSITY 1 OR MORE SITES Schedule Routine, Read Routine (OP Routine) 04/04/2024 3:34 PM CDT Menopause SCREENING MAMMOGRAM BILATERAL W MELVINA Schedule Routine, Read Routine (OP Routine) 11/25/2023 Breast cancer screening by mammogram THINPREP MASTER BLACK BELT PAP (IMAGE GUIDED) LIQUID-BASED PREP Routine 02/07/2018 10:12 AM CDT from Last 3 Months or Most Recently Relevant to Health Maintenance Results * (ABNORMAL) COLONOSCOPY (06/17/2024 11:59 AM CDT) Scribed Colonoscopy Abnormal Historical Provider HEALTH MAINTENANCE Edited Result - Final * Dexa Axial Skeleton Bone Density 1 or 2 Site (04/04/2024 3:34 PM CDT) SCRIBED DXA T-SCORE 0.9 SCRIBED DXA Z-SCORE 1.0 SCRIBED DXA BMD 0.950 Anatomical Region Laterality Modality Body N/A Radiographic Stacey ging Brooke [facility] [place]XA PROCEDURES Edited Result - Final * Screening Mammogram Bilateral W Melvina (11/25/2023) Anatomical Region Laterality Modality Breast Bilateral Mammography Brooke [facility] MAMMO PROCEDURES Final Result * ThinPrep Gynecologic Pap Test (Image-guided), Liquid-based Preparation (02/07/2018 10:12 AM CDT) CLINICAL INFORMATION [facility] HISTORICAL RESULTS Comment:Postmenopausal LMP: 2007 [facility] HISTORICAL RESULTS PREV. PAP: [facility] HISTORICAL RESULTS Comment:Information not prov ided PREV. BX: [facility] HISTORICAL RESULTS Comment:Information not prov ided SOURCE: [facility]ICAL RESULTS Comment:Cervix, Endocervix STATEMENT OF ADEQUACY: [facility]ICAL RESULTS Comment: Satisfactory for evaluation. Endocervical/transformation zone component present. INTERPRETATION/RESU LT: [facility] HISTORICAL RESULTS Comment:Negative for intraep ithelial lesion or malignancy. COMMENT: [facility] HISTORICAL RESULTS Comment: This Pap test has been evaluated with computer assisted technology. F[facility]ING [facility]: [facility] HISTORICAL RESULTS Comment: BAB, CT(ASCP) CT screening location: [place] [address] [place] [address] COMMENT [facility] HISTORICAL RESULTS Comment: EXPLANATORY NOTE: The Pap is a screening test for cervical cancer. It is not a diagnostic test and is subject to false negative and false positive results. It is most reliable when a satisfactory sample, regularly obtained, is submitted with relevant clinical findings and history, and when the Pap result is evaluated along with historic and current clinical information. 02/07/2018 10:1 2 AM CDT 02/12/2018 4:15 PM CDT Narrative [facility] HISTORICAL RESULTS - 02/12/2018 3:41 PM CDT 0 PERFORMING LAB: [facility] [place] [address] [facility] [id number] Jeff Jackson us Historical Provider LAB PATHOLOGY ORDERABLES Final Result [facility] HISTORICAL RESULTS from Last 3 Months or Most Recently Relevant to Health Maintenance Insurance [facility] Address: [address] [address] [place] [address] [facility] MEDIC[facility]AGE [facility] Address: [address] [address] [place] [address] Care Teams Hob Grinder Relationship Specialty Start Date End Date Brooke Antonio PA [address] [place] [address] PCP - General Internal Medicine 01/31/19
--- OUTSIDE RECORDS SUMMARY | 2025-03-14 08:51 | XMS_ITS | Encounter Summary ---
Author Organization 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 us Historical Provider Final Res ult documented in this encounter Visit Diagnoses Not on filedocumented in this encounter Care Teams Field Tax Auditor Relationship Specialty Start Date End Date Brooke Antonio PA [address] [place] [address] PCP - General Internal Medicine 01/31/19 documented as of this encounter
--- OUTSIDE RECORDS SUMMARY | 2025-03-14 08:51 | XMS_ITS | Referral Summary ---
Author Organization [facility] [address] [facility] Address [address] [place] [address] Care Team Providers Care Physician Practice Market Manager Name Role Phone Brooke Antonio Primary Care Provider +1- [phone] Allergies Active Allergy Reactions Criticality Noted Date [...] 2024 Assessment & Plan (10/20/2024 2:57 PM FUNERAL DRIVER): Prevnar 20 updated in the office today Breast cancer screening by mammogram 10/20/2024 Assessment & Plan (10/20/2024 2:57 PM FUNERAL DRIVER): Mammogram order provided Annual physical exam 10/20/2024 Assessment & Plan (10/20/2024 2:58 PM FUNERAL DRIVER): Encouraged healthy lifestyle, good nutrition and exercise. Encouraged Calcium and Vitamin D and weight bearing exercise for bone health. Reviewed immunizations Reviewed age appropirate screenings. Morbid obesity 04/09/2024 Assessment & Plan (10/10/2024 10:08 AM FUNERAL DRIVER): Discussed the patient's BMI. The BMI is [...] managed by Dr. Neil BMI 40.0-44.9, adult ([facility]) 02/11/2019 Assessment & Plan (10/10/2024 10:08 AM FUNERAL DRIVER): Discussed the patient's BMI. The BMI is above average. BMI management plan is completed. BMI Follow-up includes: nutrition counseling, exercise counseling and education provided. Assessment & Plan (04/09/2024 10:30 AM CDT): Discussed the patient's BMI. The BMI is above average. BMI management plan is completed. BMI Follow-up includes: nutrition counseling, exercise counseling and education provided. Assessment & Plan (07/06/2020 10:45 PM FUNERAL DRIVER): Obesity is unchanged. Discussed the patient's BMI. [...] 02/11/2019 Assessment & Plan (10/20/2024 2:57 PM FUNERAL DRIVER): Probably multifactorial. Check labs and followup to re-evaluate Assessment & Plan (07/06/2020 10:45 PM FUNERAL DRIVER): Probably multifactorial. Check labs and followup to re-evaluate Assessment & Plan (02/11/2019 10:36 PM CDT): This is a significant, separately identifiable problem that was evaluated and managed on the same day as the wellness exam Probably multifactorial. Check labs and followup to re-evaluate Essential hypertension 02/09/2019 Assessment & Plan (10/20/2024 2:56 PM FUNERAL DRIVER): Bp is stable/in acceptable range for any co-morbidities. Encouraged to limit sodium intake and exercise for weight control. Continue metoprolol and hydrochlorothiazide Assessment & Plan (04/09/2024 10:29 AM CDT): Bp is stable/in acceptable range for any co-morbidities. Encouraged to limit sodium intake and exercise for weight control. Continue metoprolol and hydrochlorothiazide Assessment & Plan (11/02/2023 10:55 PM FUNERAL DRIVER): Bp is stable/in acceptable range for any co-morbidities. Encouraged to limit sodium intake and exercise for weight control. Continue metoprolol and hydrochlorothiazide Assessment & Plan (08/29/2022 9:53 PM FUNERAL DRIVER): Bp is stable/in acceptable range for any co-morbidities. Encouraged to limit sodium intake and exercise for weight control. Continue metoprolol hydrochlorothiazide Assessment & Plan (08/29/2021 10:23 PM FUNERAL DRIVER): Bp is stable/in acceptable range for any co-morbidities. Encouraged to limit sodium intake and exercise for weight control. Continue metoprolol Assessment & Plan (07/06/2020 10:44 PM FUNERAL DRIVER): Bp is stable/in acceptable range for any [...] 02/09/2019 Assessment & Plan (10/20/2024 2:57 PM FUNERAL DRIVER): Encouraged patient to follow low fat/low chol [...] medication Assessment & Plan (11/02/2023 10:55 PM FUNERAL DRIVER): Encouraged patient to follow low fat/low chol diet like the Mediterranean diet. Increase good fats in the diet. Increase exercise. Monitor labs as needed. Patient due for follow-up labs Assessment & Plan (08/29/2022 9:55 PM FUNERAL DRIVER): Encouraged patient to follow low fat/low chol diet like the Mediterranean diet. Increase good fats in the diet. Increase exercise. Monitor labs as needed. Due for labs Assessment & Plan (08/29/2021 10:23 PM FUNERAL DRIVER): Encouraged patient to follow fat/low chol diet like the Mediterranean diet. Increase good fats in the diet. Increase exercise. Monitor labs as needed. Assessment & Plan (07/06/2020 10:45 PM FUNERAL DRIVER): Encouraged patient to follow fat/low chol diet [...] 02/09/2019 Assessment & Plan (10/20/2024 2:57 PM FUNERAL DRIVER): Pre-diabetes/hyperglycemia is a precursor to Dm. Stressed [...] diabetes. Assessment & Plan (11/02/2023 10:55 PM FUNERAL DRIVER): Pre-diabetes/hyperglycemia is a precursor to Dm. Stressed importance of working on diet (decrease your simple sugars and one carbohydrate with each meal) and increase you exercise to achieve weight loss and this will help prevent you from progressing to diabetes. Assessment & Plan (08/29/2022 9:55 PM FUNERAL DRIVER): Pre-diabetes/hyperglycemia is a precursor to Dm. Stressed importance of working on diet (decrease your simple sugars and one carbohydrate with each meal) and increase you exercise to achieve weight loss and this will help prevent you from progressing to diabetes. Assessment & Plan (08/29/2021 10:23 PM FUNERAL DRIVER): Pre-diabetes/hyperglycemia is a precursor to Dm. Stressed importance of working on diet (decrease your simple sugars and one carbohydrate with each meal) and increase you exercise to achieve weight loss and this will help prevent you from progressing to diabetes. Assessment & Plan (07/06/2020 10:45 PM FUNERAL DRIVER): Check labs. Pre-diabetes/hyperlipidemia is a precursor to [...] 9 Assessment & Plan (07/06/2020 10:44 PM FUNERAL DRIVER): Managed without medication at this point. Vitamin D deficiency 02/09/2019 Assessment & Plan (10/20/2024 2:56 PM FUNERAL DRIVER): Supplement Assessment & Plan (04/09/2024 10:29 AM CDT): Supplement Assessment & Plan (07/06/2020 10:45 PM FUNERAL DRIVER): supplement Assessment & Plan (02/11/2019 10:30 PM CDT): Continue supplement otc Menopause 02/09/2019 Assessment & Plan (11/02/2023 10:55 PM FUNERAL DRIVER): Check DEXA Resolved Problems Problem Noted Date Diagnosed Date Resolved Date Breast cancer screening by mammogram 11/02/2023 04/09/2024 Assessment & Plan (11/02/2023 10:56 PM FUNERAL DRIVER): Mammogram order provided Colon cancer screening 08/29/202210/20 Assessment & Plan (04/09/2024 10:00 AM CDT): Scheduled with Dr. Jaspal Cantor in 06/2024 Assessment & Plan (11/02/2023 10:56 PM FUNERAL DRIVER): Due for colon cancer screening. Referral to Dr. Jaspal ovalles as will be placed Assessment & Plan (08/29/2022 10:09 PM FUNERAL DRIVER): Discussed colon cancer screening. She is due for colonoscopy in prefers to see Dr. Acevedo. Will place referral Acute recurrent frontal sinusitis 06/24/2022 08/29/2022 Upper respiratory infection 09/22/2021 08/29/2022 Assessment & Plan (09/22/2021 11:15 AM FUNERAL DRIVER): Patient will be tested for COVID through [...] 04/09/2024 Assessment & Plan (11/02/2023 10:55 PM FUNERAL DRIVER): Probably multifactorial. Check labs and followup to re-evaluate Assessment & Plan (08/29/2022 10:09 PM FUNERAL DRIVER): Probably multifactorial. Check labs and followup to re-evaluate Assessment & Plan (08/29/2021 10:24 PM FUNERAL DRIVER): Probably multifactorial. Check labs and followup to re-evaluate BMI 40.0-44.9, adult 08/09/2021 022 Assessment & Plan (08/09/2021 5:17 PM FUNERAL DRIVER): Obesity is unchanged. Discussed the patient's BMI. The BMI is above average. BMI management plan is completed. BMI Follow-up includes: nutrition counseling, exercise counseling and education provided. Morbid obesity with BMI of 40.0-44.9, adult 08/09/2021 04/09/2024 Assessment & Plan (11/02/2023 10:55 PM FUNERAL DRIVER): Discussed the patient's BMI. The BMI is above average. BMI management plan is completed. BMI Follow-up includes: nutrition counseling, exercise counseling and education provided. Assessment & Plan (08/29/2022 10:08 PM FUNERAL DRIVER): Discussed the patient's BMI. The BMI is above average. BMI management plan is completed. BMI Follow-up includes: nutrition counseling, exercise counseling and education provided. Assessment & Plan (08/09/2021 5:17 PM FUNERAL DRIVER): Obesity is unchanged. Discussed the patient's BMI. [...] not improving, sooner if worsening Morbid obesity ([facility]) 02/11/201902/2024 Assessment & Plan (07/06/2020 10:45 PM FUNERAL DRIVER): Obesity is unchanged. Discussed the patient's BMI. [...] 024 Assessment & Plan (11/02/2023 10:55 PM FUNERAL DRIVER): Encouraged healthy lifestyle, good nutrition and exercise. Encouraged Calcium and Vitamin D and weight bearing exercise for bone health. Reviewed immunizations Reviewed age appropirate screenings. Assessment & Plan (08/29/2022 9:56 PM FUNERAL DRIVER): Encouraged healthy lifestyle, good nutrition and exercise. Encouraged Calcium and Vitamin D and weight bearing exercise for bone health. Reviewed immunizations Reviewed age appropirate screenings. Assessment & Plan (08/29/2021 10:23 PM FUNERAL DRIVER): Encouraged healthy lifestyle, good nutrition and exercise. Encouraged Calcium and Vitamin D and weight bearing exercise for bone health. Reviewed immunizations Reviewed age appropirate screenings. Assessment & Plan (07/06/2020 10:45 PM FUNERAL DRIVER): Encouraged healthy lifestyle, good nutrition and exercise. 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 Not on file Not on tanisha e Last Filed Vital Signs Vital Sign Reading Time Taken Comments Blood Pressure 128/76 10/10/2024 10:06 AM FUNERAL DRIVER Pulse 56 10/10/2024 10:06 AM FUNERAL DRIVER Temperature 36.3 C (97.4 F) 10/10/2024 10:06 AM FUNERAL DRIVER Respiratory Rate 16 08/15/2022 4:56 PM FUNERAL DRIVER Oxygen Saturation 95% 10/10/2024 10:06 AM FUNERAL DRIVER Inhaled Oxygen Concentration - - Weight 109.3 kg (241 lb) 10/10/2024 10:06 AM FUNERAL DRIVER Height 157.5 cm (5' 2) 10/10/2024 10:06 AM FUNERAL DRIVER Body Mass Index 44.08 10/10/2024 10:06 AM FUNERAL DRIVER Plan of Treatment Not on file Procedures Procedure Name Priority Date/Time Associated Diagnosis Comments COLONOSCOPY Routine 06/17/2024 11:59 AM CDT DEXA AXIAL SKELETON BONE DENSITY 1 OR MORE SITES Schedule Routine, Read Routine (OP Routine) 04/04/2024 3:34 PM CDT Menopause SCREENING MAMMOGRAM BILATERAL W MELVINA Schedule Routine, Read Routine (OP Routine) 11/25/2023 Breast cancer screening by mammogram THINPREP SHEET WRITER PAP (IMAGE GUIDED) LIQUID-BASED PREP Routine 02/07/2018 [...] Body N/A Radiographic Stacey ging Brooke GEORGE IMG DXA PROCEDURES Edited Result - Final * Screening Mammogram Bilateral W Melvina (11/25/2023) Anatomical Region Laterality Modality Breast Bilateral Mammography Brooke GEORGE IMG MAMMO PROCEDURES Final Result * ThinPrep Gynecologic Pap Test (Image-guided), Liquid-based Preparation (02/07/2018 10:12 AM CDT) CLINICAL INFORMATION [facility] HISTORICAL RESULTS Comment:Postmenopausal LMP: 2007 [facility] HISTORICAL RESULTS PREV. PAP: [facility] HISTORICAL RESULTS Comment:Information not prov ided PREV. BX: [facility] HISTORICAL RESULTS Comment:Information not prov ided SOURCE: [facility]ISTORICAL RESULTS Comment:Cervix, Endocervix STATEMENT OF ADEQUACY: [facility] HISTORICAL RESULTS Comment: Satisfactory for evaluation. Endocervical/transformation zone component present. INTERPRETATION/RESU LT: [facility] HISTORICAL RESULTS Comment:Negative for intraep ithelial lesion or malignancy. COMMENT: [facility] HISTORICAL RESULTS Comment: This Pap test has been evaluated with computer assisted technology. HAND MODEL: [facility] HISTORICAL RESULTS Comment: BAB, CT(ASCP) CT screening location: [place] [address] [place] [address] COMMENT [facility]ISTORICAL RESULTS Comment: EXPLANATORY NOTE: [...] AM CDT 02/12/2018 4:15 PM CDT Narrative [facility] HISTORICAL RESULTS - 02/12/2018 3:41 PM CDT 0 PERFORMING LAB: , [employer] [place] [address] [facility] [id number] Jeff Jackson Historical Provider MD LAB PATHOLOGY ORDERABLES Final Result [facility] HISTORICAL RESULTS from Last 3 Months or Most Recently Relevant to Health Maintenance Insurance [facility] CHOICE PLUS [facility] HMO/PPO Address: [address] [address] [place] [address] [facility] MEDICARE ADVANTAGE [facility] MEDICARE Address: [facility] [address] [place] [address] Care Teams Physician Practice Market Manager Relationship Specialty Start Date End Date Brooke Antonio PA [address] [place], [place] [id number] PCP - General Internal Medicine 01/31/19
--- OUTSIDE RECORDS SUMMARY | 2025-03-14 08:51 | XMS_ITS | Encounter Summary ---
Author Organization [facility] Healthcare Address [address] [place] [address] Care Team Providers Care Watch Crystal Edge Grinder Name Role Phone Brooke Antonio Primary Care Provider +1- [phone] Encounter Details Date Type Department Care Team (Late st Contact Info) Description 06/17/2024 Orders Only [facility] Health Information Management [address] [place] [address] Scanning, Provider Social History Tobacco Use [...] PHQ-2 Answer Date Recorded PHQ-2 Total Score 0 04/09/2024 Comments Unknown Sex and Gender Information Value Date Recorded Sex Assigned at Not on file 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 Gender Identity Female 01/05/2021 9:27 AM CDT Sexual Orientation Straight 01/05/2021 9: 26 AM CDT 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 file Not on tanisha e documented as of this encounter Plan of Treatment Not on file documented as of this encounter Procedures Procedure Name Priority Date/Time Associated Diagnosis Comments SCAN - PATHOLOGY 06/17/2024 documented in this encounter Results * SCAN - PATHOLOGY (06/17/2024) us Provider Scanning Final Result documented in this encounter Visit Diagnoses Not on filedocumented in this encounter Care Teams Watch Crystal Edge Grinder Relationship Specialty Start Date End Date Brooke Antonio PA [address] [facility] [address] [place] [address] PCP - General Internal Medicine 01/31/19 documented as of this encounter
== END 2025-03-14 08:46 | disposition home or self-care (01) ==
LOC: ANHIMG 08:48
PROVIDERS: PCP Physician Assistant; Visit Provider Physician Assistant
DX: Z12.31 Encounter for screening mammogram for malignant neoplasm of breast (principal)
CPT/HCPCS: 77063; 77067